=== PATIENT | male | born 1985 | race Caucasian/White ===

== ENCOUNTER 2017-03-06 04:54 | Inpatient (IN) | payer SELFPAY ==
[~2017-03-06] VITALS: Ht 182.9 cm; Wt 80.7 kg
[2017-03-06] MEDS ORDERED: SODIUM CHLORIDE 0.9% 1,000 ML IV ONE (05:27)
[2017-03-06] MEDS ORDERED: MORPHINE SULFATE 4 MG/ML CPJ (NOT FOR IM USE) IV ONE (05:30)
[2017-03-06] MEDS ORDERED: ONDANSETRON HCL 4MG/5ML ORAL SOLN PO ONE (05:30)
[2017-03-06 05:48] LABS: BASOPHILS % 0.4 % (0.0-2.0); HEMATOCRIT. 43.1 % (42.0-52.0); HEMOGLOBIN. 14.8 g/dL (14.0-18.0); LYMPHOCYTES % 20.9 % (20.0-50.0); MEAN CORPUSCULAR HEMOGLOBIN 30.8 pg (28.0-32.0); MEAN CORPUSCULAR VOLUME 89.5 fL (80.0-94.0); MEAN PLATELET VOLUME 7.2 fl (7.4-10.4); MONOCYTES % 7.8 % (2.0-8.0); NEUTROPHILS % 69.9 % (40.0-76.0); PLATELET 233 x1000/uL (130-400); RED BLOOD CELL COUNT 4.81 mill/uL (4.7-6.1); RED CELL DISTRIBUTION WIDTH 12.7 % (11.6-14.6)
[2017-03-06 05:53] LABS: PROTHROMBIN TIME 10.4 sec
[2017-03-06] MEDS ORDERED: ONDANSETRON HCL 4MG/2ML VIAL IV ONE (05:59)
[2017-03-06] MEDS ORDERED: SODIUM CHLORIDE 0.9% 10ML VIAL ONE (06:00)
[2017-03-06] MEDS ORDERED: IOHEXOL-300 100 ML BOTTLE ONE (06:00)
[2017-03-06 06:01] LABS: CARBON DIOXIDE 31 mEq/L (21-32); CHLORIDE 103 mEq/L (98-107)
[2017-03-06 07:19] LABS: CLARITY URINE CLEAR (CLEAR); COLOR URINE YELLOW (YELLOW); GLUCOSE URINE NEGATIVE (NEGATIVE); KETONES URINE NEGATIVE (NEGATIVE); LEUKOCYTE ESTERASE URINE NEGATIVE (NEGATIVE); NITRITE URINE NEGATIVE (NEGATIVE); OCCULT BLOOD URINE 3+ (NEGATIVE); PROTEIN URINE 1+ (NEGATIVE); SPECIFIC GRAVITY URINE 1.051 (1.005-1.030)
[2017-03-06] MEDS ORDERED: IPRATROPIUM/ALBUTEROL 0.5-3(2.5)MG/3ML NEB INH PRN (10:00)
[2017-03-06] MEDS ORDERED: HYDROMORPHONE HCL/PF 2MG/ML CPJ IV PRN (10:00)
[2017-03-06] MEDS ORDERED: ONDANSETRON HCL 4MG/2ML VIAL IV PRN (10:00)
[2017-03-06] MEDS ORDERED: CLONIDINE 0.1MG TABLET PO PRN (10:00)
[2017-03-06] MEDS ORDERED: ACETAMINOPHEN 325MG TABLET PO PRN (10:00)
[2017-03-06] MEDS ORDERED: DOCUSATE SODIUM 100MG CAPSULE PO PRN (10:00)
[2017-03-06] MEDS ORDERED: NA PHOS,M-B/NA PHOS,DI-BA ENEMA 118ML PR PRN (10:00)
[2017-03-06] MEDS ORDERED: HYDROCODONE/ACETAMINOPHEN 10/325MG TABLET PO PRN (10:00)
[2017-03-06] MEDS ORDERED: GUAIFENESIN 200MG/10ML SUGAR FREE UDC PO PRN (10:00)
[2017-03-06] MEDS ORDERED: DIPHENHYDRAMINE 50MG/ML VIAL IV PRN (10:00)
[2017-03-06] MEDS ORDERED: LORAZEPAM 2MG/ML CPJ IV PRN (10:00)
[2017-03-06] MEDS ORDERED: MAGNESIUM/ALUMINUM HYDROXIDE/SIMETHICONE 30ML UDC PO PRN (10:00)
[2017-03-06 10:37] LABS: CARBON DIOXIDE 30 mEq/L (21-32); CHLORIDE 105 mEq/L (98-107)
[2017-03-06 11:35] VITALS: BP 104/57
[2017-03-06 12:00] VITALS: BP 104/57
[2017-03-06] MEDS: SODIUM CHLORIDE 0.45% 1,000 ML IV SCH (13:13)
[2017-03-06] MEDS: ENOXAPARIN 40MG/0.4ML SYR SUBCUT SCH (13:21)
[2017-03-06 16:00] VITALS: BP 94/61
[2017-03-06] MEDS: LEVOFLOXACIN 500MG PREMIX 100 ML IV SCH (16:34)
[2017-03-06 20:00] VITALS: BP 105/55
[2017-03-07] VITALS: BP 105/55
[2017-03-07 04:00] VITALS: BP 106/60
[2017-03-07 06:32] LABS: BASOPHILS % 0.4 % (0.0-2.0); EOSINOPHILS % 1.5 % (0.0-5.0); HEMATOCRIT. 38.4 % (42.0-52.0); HEMOGLOBIN. 13.4 g/dL (14.0-18.0); LYMPHOCYTES % 42.8 % (20.0-50.0); MEAN CORPUSCULAR HEMOGLOBIN 31.3 pg (28.0-32.0); MEAN CORPUSCULAR VOLUME 89.9 fL (80.0-94.0); MEAN PLATELET VOLUME 7.5 fl (7.4-10.4); MONOCYTES % 7.8 % (2.0-8.0); NEUTROPHILS % 47.5 % (40.0-76.0); PLATELET 191 x1000/uL (130-400); RED BLOOD CELL COUNT 4.27 mill/uL (4.7-6.1)
[2017-03-07 07:29] LABS: CHLORIDE 104 mEq/L (98-107)
[2017-03-07 07:44] LABS: CARBON DIOXIDE 27 mEq/L (21-32); HDL CHOLESTEROL 41 mg/dL (40-59); LDL CHOLESTEROL 81 mg/dL (5-100)
[2017-03-07 08:00] VITALS: BP 103/62
[2017-03-07] MEDS: ENOXAPARIN 40MG/0.4ML SYR SUBCUT SCH (09:53)
[2017-03-07] MEDS: LEVOFLOXACIN 500MG PREMIX 100 ML IV SCH (09:54)
[2017-03-07] MEDS: SODIUM CHLORIDE 0.45% 1,000 ML IV SCH (09:54)
[2017-03-07 12:00] VITALS: BP 95/51
[2017-03-07 16:00] VITALS: BP 100/64
[2017-03-07 20:00] VITALS: BP 105/62
[2017-03-08] VITALS: BP 110/63
[2017-03-08 04:00] VITALS: BP 103/58
[2017-03-08] MEDS: SODIUM CHLORIDE 0.45% 1,000 ML IV SCH ×2 (05:29→09:12)
[2017-03-08 07:12] LABS: BASOPHILS % 0.3 % (0.0-2.0); EOSINOPHILS % 1.4 % (0.0-5.0); HEMATOCRIT. 40.1 % (42.0-52.0); HEMOGLOBIN. 13.8 g/dL (14.0-18.0); LYMPHOCYTES % 42.6 % (20.0-50.0); MEAN CORPUSCULAR HEMOGLOBIN 31.2 pg (28.0-32.0); MEAN CORPUSCULAR VOLUME 90.7 fL (80.0-94.0); MEAN PLATELET VOLUME 7.5 fl (7.4-10.4); NEUTROPHILS % 47.7 % (40.0-76.0); PLATELET 200 x1000/uL (130-400); RED BLOOD CELL COUNT 4.42 mill/uL (4.7-6.1); RED CELL DISTRIBUTION WIDTH 12.9 % (11.6-14.6)
[2017-03-08 08:00] VITALS: BP 100/56
[2017-03-08 08:19] LABS: CARBON DIOXIDE 31 mEq/L (21-32); CHLORIDE 104 mEq/L (98-107)
[2017-03-08 08:54] VITALS: BP 100/56
[2017-03-08] MEDS: LEVOFLOXACIN 500MG PREMIX 100 ML IV SCH (09:00)
[2017-03-08] MEDS: ENOXAPARIN 40MG/0.4ML SYR SUBCUT SCH (09:04)
[2017-03-08] MEDS ORDERED: LEVOFLOXACIN 500MG PREMIX 100 ML IV SCH (14:00)
== END 2017-03-08 09:10 | disposition home or self-care (01) | DRG 465 ==
LOC: ER 04:55 → 6EST 08:53 → EDBEDREQTM 08:56 → EDBEDREQ 08:56 → ENRESERV 10:39
PROVIDERS: ADMIT Internal Medicine; ATTEND Internal Medicine
DX: N13.2 Hydronephrosis with renal and ureteral calculous obstruction (principal); N17.9 Acute kidney failure, unspecified; R65.10 Systemic inflammatory response syndrome (SIRS) of non-infectious origin without acute organ dysfunction; N39.0 Urinary tract infection, site not specified; E86.0 Dehydration; Z87.891 Personal history of nicotine dependence
CPT/HCPCS: 36415; 74177; 76770; 80048; 80053; 80061; 81001; 83690; 85025; 85610; 96361; 96374; 96375; 99285; A4216; J1650; J1956; J2270; J2405; J7030; Q9967